=== PATIENT | female | born 1980 | race African-American/Black ===

== ENCOUNTER 2016-08-03 04:47 | Inpatient (IN) | payer OTHER ==
[2016-08-03] VITALS (28 sets, daily range): BP systolic 115–148; BP diastolic 45–90; PULSE 79–130; RESP 17–19; TEMP 97.8–98.4
[~2016-08-03 04:47] MED LIST: FEXO60TA PO; FLOV110A INH; FLUT50SP; MONT10 PO; NUVAMIS PV; VENTAER INH
[2016-08-03] MEDS ORDERED: MINERAL OIL 10 ML VIAL TOPICAL PRN (05:00)
[2016-08-03] MEDS ORDERED: CITRIC ACID-SODIUM CITRATE LIQ 30 ML UDC PO SCH (05:00)
[2016-08-03] MEDS ORDERED: LACTATED RINGER'S 1000 ML BOLUS IV PRN (05:00)
[2016-08-03] MEDS ORDERED: PENICILLIN G POT 5,000,000 UNITS/NS 100 ML (Mini-Bag Plus) IV ONE ×2 (05:00)
[2016-08-03] MEDS ORDERED: OXYTOCIN 30 UNITS/NS 500ML PREMIX IV SCH ×2 (05:00→05:30)
[2016-08-03] MEDS ORDERED: OXYTOCIN 30 UNITS 500ML PREMIX IV ONE (05:00)
[2016-08-03] MEDS ORDERED: NS 500 ML BOLUS IV PRN (05:00)
[2016-08-03] MEDS ORDERED: LIDOCAINE HCL 1% 50 ML VIAL I-DERMAL PRN (05:00)
[2016-08-03] MEDS ORDERED: LIDOCAINE HCL 1% 50 ML VIAL INFIL PRN (05:00)
[2016-08-03] MEDS ORDERED: ONDANSETRON HCL 4 MG/2 ML VIAL IV PRN (05:00)
[2016-08-03] MEDS ORDERED: NS 1000 ML IV PRN (05:00)
[2016-08-03 05:53] LABS: AUTOMATED NEUTROPHIL # 7.2 TH/MM3 (1.8-7.7); BASOPHIL % 0.4 % (0.0-2.0); EOSINOPHIL # 0.2 TH/MM3 (0-0.4); EOSINOPHIL % 2.2 % (0.0-4.0); HEMATOCRIT 39.3 % (35.0-46.0); HEMO FLAGS DIFF FINAL; LYMPH % 21.5 % (9.0-44.0); LYMPHOCYTE # 2.2 TH/MM3 (1.0-4.8); MEAN CELL VOLUME 87.4 FL (80.0-100.0); MEAN CORPUSCULAR HEMOGLOBIN 30.3 PG (27.0-34.0); MEAN CORPUSCULAR HGB CONC 34.6 % (32.0-36.0); MONO % 7.2 % (0.0-8.0); NEUT % 68.7 % (16.0-70.0); PLATELET COUNT 228 TH/MM3 (150-450); RED CELL DISTRIBUTION WIDTH 15.2 % (11.6-17.2); WHITE BLOOD COUNT 10.5 TH/MM3 (4.0-11.0)
[2016-08-03] MEDS ORDERED: AMPICILLIN 2 GM/NS 100 ML IV SCH ×2 (06:00)
[2016-08-03 06:48] LABS: BACTERIA, URINE RARE /hpf; BLOOD, URINE NEG (NEG); COMMENT (UR) CULT NOT INDICATED; CULTURE IF INDICATED CULT NOT INDICATED; GLUCOSE,URINE NEG (NEG); HYALINE CAST, URINE 1 /lpf (RARE); KETONE, URINE NEG (NEG); NITRITE,URINE NEG (NEG); SQUAMOUS EPITHELIAL CELL URINE 1 /hpf (0-5); URINE COLOR LIGHT-YELLOW (YELLW/STRAW)
[2016-08-03] MEDS ORDERED: PENICILLIN G POT 2,500,000 UNITS/NS 100 ML IV SCH ×2 (09:00)
[2016-08-03] MEDS ORDERED: fentaNYL 2MCG-BUPIV 0.125% INJ 100 ML ONE (09:34)
[2016-08-03] MEDS: AMPICILLIN 1 GM/NS 100 ML IV SCH ×6 (10:12→21:40)
[2016-08-03] MEDS ORDERED: ePHEDrine/NS 25 MG/5 ML SYR ONE (11:28)
--- NOTE | 2016-08-03 13:28 | PD.OB.DELI ---
Delivery Date: Aug 03, 2016 Anesthesia: Epidural Episiotomy: None Vaginal Delivery: Normal, Spontaneous Presentation: Occiput anterior Nuchal Cord: x2 Delayed cord clamping (45 sec): No Infant: Female One Minute : 9 Five Minute : 9 Weight: 6-2 Placenta: Spontaneous delivery, Intact, 3 vessel cord Laceration: Vaginal laceration, 1 deg Repair: Chromic interrupted Rebecca Marroquin MD Aug 03, 2016 13:27
[2016-08-03] MEDS ORDERED: ALUMINUM/MAGNESIUM/SIMETH 30 ML CUP PO PRN (13:30)
[2016-08-03] MEDS ORDERED: ACETAMINOPHEN 325 MG TAB PO PRN (13:30)
[2016-08-03] MEDS ORDERED: BENZOCAINE 20% TOPICAL SPRAY 60 ML CAN TOPICAL PRN (13:30)
[2016-08-03] MEDS ORDERED: DOCUSATE SODIUM 50 MG/SENNA 8.6 MG TAB PO PRN (13:30)
[2016-08-03] MEDS ORDERED: ONDANSETRON ODT 4 MG TAB PO PRN (13:30)
[2016-08-03] MEDS ORDERED: SODIUM CHLORIDE 0.9% FLUSH 10 ML FLUSH IV FLUSH PRN (13:30)
[2016-08-03] MEDS ORDERED: ZOLPIDEM TARTRATE 5 MG TAB PO PRN (13:30)
[2016-08-03] MEDS ORDERED: oxyCODONE/ACETAMINOPHEN 5 MG/325 MG TAB PO PRN ×2 (13:30)
[2016-08-03] MEDS ORDERED: WITCH HAZEL 50%/GLYCERIN 12.5% 40 PAD JAR TOPICAL PRN (13:30)
[2016-08-03] MEDS ORDERED: ePHEDrine/NS 25 MG/5 ML SYR IV PRN (14:30)
[2016-08-03] MEDS ORDERED: NO SYSTEM NARCOTICS PRN (15:00)
[2016-08-03] MEDS ORDERED: fentaNYL 2MCG-BUPIV 0.125% 100 ML EPIDURAL SCH (15:00)
[2016-08-03] MEDS ORDERED: DO NOT ADMINISTER ANTICOAGULANTS PRN (15:00)
[2016-08-03] MEDS ORDERED: MEASLES, MUMPS, RUBELLA VACCINE 0.5 ML VIAL SQ ONE (16:00)
[2016-08-03] MEDS ORDERED: DIPHTH/TETANUS/ACEL PERTUSSIS (BOOSTER) 0.5 ML VIAL/PFS IM ONE (16:00)
[2016-08-03] MEDS ORDERED: SODIUM CHLORIDE 0.9% FLUSH 10 ML FLUSH IV FLUSH SCH (21:00)
[2016-08-03] MEDS: LACTATED RINGER'S 1000 ML IV SCH (21:00)
[2016-08-04] MEDS: IBUPROFEN 600 MG TAB PO PRN ×4 (00:41→20:46)
[2016-08-04] MEDS: AMPICILLIN 1 GM/NS 100 ML IV SCH ×4 (01:57→06:00)
[2016-08-04] MEDS: LACTATED RINGER'S 1000 ML IV SCH (04:57)
[2016-08-04 08:20] VITALS: BP 131/84; PULSE 90; RESP 16; TEMP 97.9
--- NOTE | 2016-08-04 12:42 | HHI.OB ---
Subjective Post Day: 1 Remarks Pt doing well Objective Vitals/I&O Vital Signs Date Time Temp Pulse Resp B/P Pulse Ox O2 Delivery O2 Flow Rate FiO2 08/04/16 09:15 17 08/04/16 08:20 97.9 90 16 131/84 08/03/16 15:00 17 08/03/16 14:45 107 18 119/76 08/03/16 14:30 121 131/84 08/03/16 14:15 115 134/74 08/03/16 14:15 19 08/03/16 14:10 98.4 08/03/16 14:00 120 126/76 08/03/16 13:54 128 18 128/74 08/03/16 13:46 112 08/03/16 13:45 18 08/03/16 13:31 116 130/67 08/03/16 12:45 98.4 Objective Remarks GENERAL: Well-nourished, well-developed patient. CARDIOVASCULAR: Regular rate and rhythm without murmurs, gallops, or rubs. RESPIRATORY: Breath sounds equal bilaterally. No accessory muscle use. ABDOMEN/GI: Abdomen soft, non-tender. Fundus: Firm, non-tender at umbilicus. GENITOURINARY: Light to moderate bleeding. EXTREMITIES: No cyanosis or edema, non-tender, without signs of DVT. Medications and IVs Current Medications Medications (Trade) Dose Ordered Sig/[facility] Route Start Time Stop Time Status Last Admin Oxytocin 500 ml @ 0 mls/hr TITRATE IV 08/03/16 05:00 08/03/16 10:14 Lactated Ringer's 1,000 ml @ 125 mls/hr Q8H IV 08/03/16 05:00 Lactated Ringer's 1,000 ml @ 3,000 mls/hr BOLUS PRN IV 08/03/16 05:00 08/03/16 10:12 Sodium Chloride 500 ml @ 1,000 mls/hr BOLUS PRN IV 08/03/16 05:00 (NS 1000 ml Inj) 1,000 ml @ 100 mls/hr Q10H PRN IV 08/03/16 05:00 (Zofran Inj) 4 mg Q6H PRN IV 08/03/16 05:00 (fentaNYL INJ) 50 mcg Q1H PRN IV PUSH 08/03/16 05:00 (fentaNYL INJ) 100 mcg Q1H PRN IV PUSH 08/03/16 05:00 Mineral Oil 10 ml 10 ml UNSCH PRN TOPICAL 08/03/16 05:00 Oxytocin 500 ml @ 0 mls/hr TITRATE IV 08/03/16 05:30 (Ampicillin Inj/ NS Inj) 100 ml @ 400 mls/hr Q4H IV 08/03/16 10:00 08/03/16 10:12 (NS Flush) 2 ml BID IV FLUSH 08/03/16 21:00 (NS Flush) 2 ml UNSCH PRN IV FLUSH 08/03/16 13:30 (Tylenol) 650 mg Q4H PRN PO 08/03/16 13:30 (Motrin) 600 mg Q6H PRN PO 08/03/16 13:30 08/04/16 07:21 (Percocet 5-325 Mg) 1 tab Q4H PRN PO 08/03/16 13:30 (Percocet 5-325 Mg) 2 tab Q4H PRN PO 08/03/16 13:30 (Americaine 20% Top Spr) 1 spray Q4H PRN TOPICAL 08/03/16 13:30 08/04/16 00:41 (Tucks Pads) 1 applic QID PRN TOPICAL 08/03/16 13:30 08/04/16 00:41 (Cristine-Colace) 2 tab Q12H PRN PO 08/03/16 13:30 08/04/16 00:41 (Ambien) 5 mg HS PRN PO 08/03/16 13:30 (Mag-Al Plus Susp Liq) 15 ml Q8H PRN PO 08/03/16 13:30 (Zofran Odt) 4 mg Q6H PRN PO 08/03/16 13:30 Miscellaneous Information No systemic narcotics to be given except... UNSCH PRN .XX 08/03/16 15:00 08/04/16 14:59 Miscellaneous Information DO NOT ADMINISTER ANY ANTICOAGUL... UNSCH PRN .XX 08/03/16 15:00 08/04/16 14:59 (fentaNYL 2MCG-BUPIV 0.125% INJ) 100 ml @ 0 mls/hr TITRATE EPIDURAL 08/03/16 15:00 (ePHEDrine/NS 25 MG/5 ML SYR) 10 mg UNSCH PRN IV 08/03/16 14:30 08/04/16 14:29 Assessment/Plan Assessment and Plan PPD # 1 s/p doing well 1. routine care 2. plan for dc in am Discharge Planning ppd 2 Rebecca Marroquin MD Aug 04, 2016 12:42
[2016-08-04 20:00] VITALS: BP 147/82; PULSE 97; RESP 19; TEMP 98.2
[2016-08-05] MEDS: IBUPROFEN 600 MG TAB PO PRN (04:28)
[2016-08-05 09:00] VITALS: BP 144/94; PULSE 85; RESP 18; TEMP 98.3
[2016-08-05 11:00] VITALS: BP 135/79
[2016-08-05] MEDS ORDERED: OXYC1TAB63 PO (11:16)
--- NOTE | 2016-08-05 11:17 | HHI.DCPOC ---
Discharge Care Plan Your Health Problems Are: Vaginal delivery Report Symptoms to Your Doctor -Temperate above 100.5 degrees -Redness, of incision or excessive or foul smelling drainage -Unusual pain or calf pain -Increased vaginal bleeding -Painful or difficulty urinating -Feelings of extreme sadness or anxiety after 2 weeks Goals to Promote Your Health * To prevent worsening of your condition and complications * To maintain your health at the optimal level Directions to Meet Your Goals Take your medications as prescribed Follow your dietary instruction Follow activity as directed Ensure plenty of rest for recovery Drink fluids for hydration Keep your appointments as scheduled Take your immunizations and boosters as scheduled If your symptoms worsen call your PCP, if no PCP go to Urgent Care Center or Emergency Room Smoking is Dangerous to Your Health. Avoid second hand smoke Call the 24-hour crisis hotline for domestic abuse at Rebecca Marroquin MD Aug 05, 2016 11:17
== END 2016-08-05 14:23 | disposition home or self-care (01) | DRG 775 ==
LOC: H2EA 04:47 → H1EA 15:25
PROVIDERS: ADMIT Obstetrics & Gynecology; ATTEND Obstetrics & Gynecology
PROC: 10E0XZZ Delivery of Products of Conception, External Approach (ICD-10-PCS; principal; 2016-08-03)
PROC: 0HQ9XZZ Repair Perineum Skin, External Approach (ICD-10-PCS; 2016-08-03)
PROC: 3E0R3CZ (ICD-10-PCS; 2016-08-03)
PROC: 00HU33Z Insertion of Infusion Device into Spinal Canal, Percutaneous Approach (ICD-10-PCS; 2016-08-03)
DX: O71.4 Obstetric high vaginal laceration alone (principal); O69.81X0 Labor and delivery complicated by cord around neck, without compression, not applicable or unspecified; Z37.0 Single live birth; Z3A.00 Weeks of gestation of pregnancy not specified
CPT/HCPCS: 59025; 81001; 85025; 86900; 86901; 90715; J0290; J2590; J7120